=== PATIENT | male | born 1980 | race Caucasian/White ===

== ENCOUNTER 2023-04-24 06:05 | Day surgery (SDC) | payer OTHER ==
[~2023-04-24] VITALS: Ht 190.5 cm; Wt 110.6 kg
[~2023-04-24 06:05] MED LIST: CLINDAMYCIN 900 MG in IV 1 EA IV ONE; FLUT50SP17; MELO15TA28 PO; OMEP-173 PO; SUMA50TA2 PO; TIZA2TA PO; TOPI-254 PO
[2023-04-24] MEDS ORDERED: LR 1,000 ML IV SCH ×2 (06:30→09:45)
[2023-04-24] MEDS ORDERED: TRANEXAMIC ACID 100 MG/ML 10ML VIAL As Ordered ONE (07:37)
[2023-04-24] MEDS ORDERED: ROCURONIUM BROMIDE 50MG/5ML VIAL As Ordered ONE (08:02)
[2023-04-24] MEDS ORDERED: fentaNYL 250 MCG/5 ML INJECTION As Ordered ONE (08:02)
[2023-04-24] MEDS ORDERED: propofoL 200 MG/20 ML VIAL As Ordered ONE ×2 (08:02→08:31)
[2023-04-24] MEDS ORDERED: MIDAZOLAM INJ 2MG/2ML VIAL As Ordered ONE (08:02)
[2023-04-24] MEDS ORDERED: LIDOCAINE 2% 100MG/5ML SDV (FOR ANES.) As Ordered ONE (08:02)
[2023-04-24] MEDS ORDERED: HYDROmorphone HCL 2MG/ML 1ML VIAL As Ordered ONE (08:02)
[2023-04-24] MEDS ORDERED: DESFLURANE 240 ML INHALANT As Ordered ONE (08:02)
[2023-04-24] MEDS ORDERED: SUGAMMADEX SODIUM 500 MG/5 ML VIAL (BRIDION) As Ordered ONE (08:02)
[2023-04-24] MEDS ORDERED: ACETAMINOPHEN 1000MG 100ML IV BAG As Ordered ONE (08:02)
[2023-04-24] MEDS ORDERED: METOCLOPRAMIDE INJ 10MG/2ML VIAL As Ordered ONE (08:02)
[2023-04-24] MEDS ORDERED: ONDANSETRON 4MG 2ML VIAL As Ordered ONE (08:02)
[2023-04-24] MEDS ORDERED: KETOROLAC 60MG 2ML VIAL As Ordered ONE (08:02)
[2023-04-24] MEDS ORDERED: ONDANSETRON 4MG 2ML VIAL IV PRN (09:45)
[2023-04-24] MEDS ORDERED: fentaNYL 100 MCG/2 ML INJECTION IV PRN (09:45)
[2023-04-24] MEDS: oxyCODONE 5MG TAB PO PRN ×2 (10:43→11:10)
[2023-04-24 11:59] VITALS: BP 132/86; TEMP 97.9; O2SAT 97
== END 2023-04-24 12:01 | disposition home or self-care (01) ==
LOC: M SDC 06:05
PROVIDERS: ATTEND Student in an Organized Health Care Education/Training Program
DX: G56.22 Lesion of ulnar nerve, left upper limb (principal); K21.9 Gastro-esophageal reflux disease without esophagitis; M51.9 Unspecified thoracic, thoracolumbar and lumbosacral intervertebral disc disorder; M25.522 Pain in left elbow; G47.30 Sleep apnea, unspecified; G56.92 Unspecified mononeuropathy of left upper limb; F17.210 Nicotine dependence, cigarettes, uncomplicated; Z88.0 Allergy status to penicillin; Z79.899 Other long term (current) drug therapy
CPT/HCPCS: 64718; C1762; J0131; J0665; J0737; J1100; J1170; J1885; J2250; J2405; J2765; J3010

== ENCOUNTER 2023-07-23 16:02 | Emergency (ER) | payer OTHER ==
[~2023-07-23] VITALS: Ht 190.5 cm; Wt 114.7 kg
[~2023-07-23 16:02] MED LIST changes: -CLINDAMYCIN 900 MG in IV 1 EA IV ONE
[2023-07-23 17:24] LABS: RSV AMPLIFICATION NEGATIVE (NEGATIVE)
[2023-07-23] MEDS ORDERED: ACETAMINOPHEN TAB 650MG DOSE (2X325MG) PO ONE (18:35)
[2023-07-23 19:44] LABS: BASO % 0.2 % (0.0-1.0); EOS # 0.1 10^3/uL (0.0-0.5); EOS % 0.7 % (0.0-3.0); HEMATOCRIT 47.1 % (42.0-52.0); LYMPH # 1.9 10^3/uL (1.5-5.0); LYMPH % 21.9 % (24.0-44.0); MEAN CORPUSCULAR HEMOGLOBIN 30.5 pg (27.0-33.0); MEAN CORPUSCULAR VOLUME 89.9 fl (80.0-96.0); MONO # 1.3 10^3/uL (0.0-0.8); NEUTROPHILS # 5.4 10^3/uL (1.5-8.5); NEUTROPHILS % 61.7 % (36.0-66.0); PLATELET COUNT, AUTOMATED 201 10^3/uL (150-450); RED BLOOD COUNT 5.24 10^6/uL (4.30-6.10); WHITE BLOOD COUNT 8.8 10^3/uL (4.0-10.0)
[2023-07-23 19:53] VITALS: BP 109/61; TEMP 97.5; O2SAT 94
[2023-07-23 20:06] LABS: CK-MB VALUE MASS < 1.0 NG/ML (<3.6)
[2023-07-23 20:20] LABS: CPK CREATINE PHOSPHOKINASE 454 U/L (46-171); MB/CK RELATIVE INDEX 0.22 (< OR =4)
[2023-07-23] MEDS ORDERED: BENZ200C70 PO (20:56)
[2023-07-23] MEDS ORDERED: IBUP-1022 PO (20:56)
== END 2023-07-23 21:06 | disposition home or self-care (01) ==
LOC: M ED 16:02
DX: J06.9 Acute upper respiratory infection, unspecified (principal); G47.30 Sleep apnea, unspecified; F17.200 Nicotine dependence, unspecified, uncomplicated; Z79.899 Other long term (current) drug therapy; Z88.0 Allergy status to penicillin